=== PATIENT | male | born 1995 ===

== ENCOUNTER 2025-01-01 18:34 | Inpatient (IN) | payer OTHER, SELFPAY ==
--- NOTE | ~2025-01-01 | CT_ITS ---
CLINICAL HISTORY: RLQ pain ?appy CT abdomen and pelvis with contrast Comparison: None provided Findings: No consolidation or effusion. Hepatomegaly. No urolithiasis. Diffuse small bowel mural thickening with mucosal hyperemia may reflect secondary enteritis. No bowel obstruction. Prominent mesenteric nodes, likely reactive. Scattered colonic diverticulosis without diverticulitis or colitis. Dilated appendix without appendicoliths and diffuse periappendiceal fluid stranding. No periappendiceal fluid collections or evidence of perforation. Bladder is decompressed with mural thickening, nonspecific. Small volume ascites in the pelvis. The bones are intact. IMPRESSION: 1. Non perforated appendicitis with small volume free pelvic fluid. 2. Secondary mildly diffuse enteritis. This document has been electronically signed by: Filiberto Landon MD on 01/02/2025 01:08:01
[2025-01-01 18:44] VITALS: BP 123/72; PULSE 85; RESP 12; TEMP 36.7; O2SAT 97; BMI 21.9
--- NOTE | 2025-01-01 18:45 | ED_ITS ---
HPI - General Adult General Chief complaint: Abdominal Pain Stated complaint: abd pain Time Seen by Provider: 01/01/25 23:35 Source: patient Mode of arrival: ambulatory Limitations: no limitations History of Present Illness ED Provider: HPI narrative: Patient no significant past medical history noticed suprapubic right lower abdominal pain since 23:00 yesterday pain continued to get worse already today increases on ambulation vomited once does not feel hungry no fever no chills no urinary symptoms no history of kidney stone Related Data Allergies Allergy/AdvReac Type Severity Reaction Status Date / Time No Known Allergies Allergy Verified 01/01/25 18:46 Review of Systems 2 Review of Systems: Yes all other systems are reviewed and are negative [facility] Social History Social History Alcohol intake: current Alcohol intake frequency: holidays/special occasions only Smoked in Last 30 Days: No Use of substances other than those prescribed or required for medical reasons: No Advance Directives: No Advance Directives Information Provided: No Do you have a plan to hurt others: No Plan Physical Exam ED Vital Signs: Vital Signs - 24 hr 01/01/25 18:44 01/01/25 22:44 01/02/25 00:13 Temperature 98.1 F 97.9 F 98.8 F Pulse Rate 85 77 78 Respiratory Rate 12 18 17 Blood Pressure 123/72 104/64 107/70 Pulse Oximetry 97 98 100 Oxygen Delivery Method Room Air Room Air Room Air BMI result Body Mass Index 21.9 Appearance: Alert. Oriented X3. No acute distress. Eyes: NO PALLOR OR ICTERUS ENT: Pharynx normal. Oral Mucosa moist Neck: Normal inspection. Neck supple. CVS: Normal heart rate and rhythm. Pulses normal. Respiratory: No respiratory distress. Equal air entry bilateral, no wheezing/rales/rhonchi Abdomen: Soft and deep tenderness right lower quadrant with guarding no rebound tenderness Bowel sounds are present, no mass palpable, no CVA tenderness Skin: Skin warm and dry. Normal skin color. Normal skin turgor. Extremities: No lower extremity edema. No calf tenderness Neuro: Oriented X 3. No motor deficit. Course Course Course Narrative: This is a rapid medical exam performed by Karolina Núñez NP: Additional HPI, ROS, PE not included below will be deferred to primary provider. Patient is a 29-year-old male presenting with complaint of lower abd pain since 11pm last night. Vomited this afternoon and felt warm. Denies diarrhea. Denies urinary sxs. Plan: labs, UA Medications Administered Generic Name Dose Route Start Last Admin Trade Name Freq PRN Reason Stop Dose Admin Piperacillin Sod/Tazobactam 50 mls @ 100 mls/hr 01/02/25 01:15 01/02/25 01:28 Sod 3.375 gm/ Sodium Chloride IV 01/02/25 01:44 100 mls/hr ONCE ONE Administration Lactated Ringer's 1,000 mls @ 100 mls/hr 01/02/25 01:30 01/02/25 01:28 Lr IVCONT 100 mls/hr .Q10H RINA Administration Discontinued Medications Generic Name Dose Route Start Last Admin Trade Name Freq PRN Reason Stop Dose Admin Sodium Chloride 1,000 mls @ 999 mls/hr 01/01/25 23:45 01/02/25 01:20 Ns IV 01/02/25 00:45 Infused .Q1H1M ONE Infusion Iohexol 85 ml 01/02/25 00:13 01/02/25 00:14 Iohexol 350 Mg/Ml 100 Ml Infus..Btl IV 01/02/25 00:14 85 ml ONCE ONE Administration Ondansetron HCl 4 mg 01/01/25 23:45 01/02/25 00:12 Ondansetron Hcl 4 Mg/2 Ml Vial IVPUSH 01/01/25 23:46 4 mg ONCE ONE Administration Medical Decision Making Medical Decision Making [facility] Narrative: Patient with right lower quadrant pain with normal CBC count very tender on ambulation possible he has a appendicitis/appendagitis patient -CT scan showed enlarged appendix without any perforation case discussed with Dr. Melendez surgeon will admit patient for surgery in a.m. will give IV fluids and IV Zosyn Differential Diagnosis Differential Diagnoses: The differential diagnosis associated with the presentation includes Appendicitis/appendagitis/UTI/renal colic/constipation Consult Healthcare Provider Management of the patient was discussed with: Community Case Manager Dr. Melendez Lab Data [facility] Lab Attestation statement: I reviewed the patient's lab results. 01/01/25 19:26 01/01/25 19:26 Labs: Lab Results 08/13/25 08/13/25 08/14/25 Range/Units 19:26 22:56 00:17 WBC 10.3 (4.8-10.8) X10*3/uL RBC 4.85 (4.60-5.80) X10*6/uL Hgb 13.9 L (14.0-18.0) g/dl Hct 41.3 L (42.0-52.0) % MCV 85.2 (80.0-98.0) fL MCH 28.7 (27.0-33.0) pg MCHC 33.7 (31.0-36.0) g/dl RDW 12.0 (11.0-16.0) % Plt Count 262 (160-400) X10*3/uL MPV 9.7 (9.4-12.4) fL Immature Gran % (Auto) 0.8 H (0.0-0.4) % Neut % (Auto) 71.4 (45-73) % Lymph % (Auto) 17.9 L (20-40) % [place] % (Auto) 9.4 (2-11) % Eos % (Auto) 0.3 (0-4) % Baso % (Auto) 0.2 (0-2) % Lymph # (Auto) 1.8 (1.2-4.9) X10*3/uL [place] # (Auto) 1.0 (0.1-1.2) X10*3/uL Eos # (Auto) 0.0 (0.0-0.4) X10*3/uL Baso # (Auto) 0.0 (0.0-0.2) X10*3/uL Abs Immat Gran (auto) 0.08 H (0.00-0.03) X10*3/uL Absolute Neuts (auto) 7.3 (2.0-8.3) x10*3/uL Absolute Nucleated RBC 0.000 (0.0-0.012) X10*3/uL Nucleated RBC % (auto) 0.0 (0.0-0.2) /100WBC Sodium 142 (135-145) mmol/L Potassium 3.9 (3.3-5.1) mmol/L Chloride 106 (96-108) mmol/L Carbon Dioxide 28 (22-29) mmol/L Anion Gap 12 (12-20) BUN 7 L (9-16) mg/dL Creatinine 0.88 (0.5-1.4) mg/dL Estim Creat Clear Calc 125.8 Estimated GFR > 60 Random Glucose 85 (60-115) mg/dL Lactic Acid 0.7 (0.5-2.0) mmol/L Calcium 8.8 (8.4-10.2) mg/dL Total Bilirubin 0.6 (0.0-1.0) mg/dL AST 22 (5-37) U/L ALT 17 (0-40) U/L Alkaline Phosphatase 61 (39-117) U/L Total Protein 7.3 (6.5-8.0) g/dL Albumin 4.8 (3.5-5.0) g/dL Urine Color Yellow Urine Appearance Clear Urine pH 6.0 (5.0-9.0) Ur Specific [place] 1.015 (1.005-1.025) Urine Protein Negative (Neg-Trace) mg/dL Urine Glucose (UA) Negative (Negative) mg/dL Urine Ketones Negative (Negative) mg/dL Urine Blood Negative (Negative) Urine Nitrite Negative (Negative) Ur Leukocyte Esterase Negative (Negative) Independent Interpretation I performed an independent interpretation of an: CT Scan Radiology Impression Discussion of test interpretation with radiology: I have reviewed the radiologist's reading. Radiologist Impression: IMPRESSION: 1. Non perforated appendicitis with small volume free pelvic fluid. 2. Secondary mildly diffuse enteritis. Discharge Plan Discharge Clinical Impression: Acute appendicitis Patient Disposition: Admitted As Inpatient
--- OUTSIDE RECORDS SUMMARY | 2025-01-01 19:23 | XMS_ITS | Clinical Summary ---
Author Organization [address] [facility] Address [address] [place] [address] Phone Care Team Providers Care Continuous Churn Buttermaker Name Role Phone Yves Rae MD Primary Care Provider [phone] Allergies No known active allergies Medications mesalamine (CANASA) 1,000 mg suppositoryIndi cations:Ulcerat odell proctitis with rectal bleeding (CMS/HCC V24, CMS/HCC V28) Insert 1 suppository (1,000 mg total) into the rectum at bedtime. 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, CMS/HCC V28) (Primary Dx) from Last 3 Months Surgical History Surgery Date Site/Laterality Comments COLONOSCOPY 05/22/2023 - 05/21/2024 Medical History Medical History Date Comments Proctitis 2023 Family History Medical History Relation Name Comments No Known Problems Father No Known Problems Mother Relation Name Status Comments Father Alive Mother Alive Social History Tobacco Use Types Packs/Day Years Used Date Smoking Tobacco: Never Smokeless Tobacco: Never Tobacco Cessation:Counseling Given: Not Answered Alcohol Use Standard Drinks/Week Comments Not Currently 0 (1 standard drink = 0.6 oz pur e alcohol) Sex and Gender Information Value Date Recorded Sex Assigned at Not on file Legal Sex Male 2:26 AM EST Gender Identity Not on file Sexual Orientation Not on file Obstetrics History Last Filed Vital Signs Vital Sign Reading Time Taken Comments Blood Pressure 110/62 11/08/2024 2:34 PM EDT Pulse 68 11/08/2024 2:34 PM EDT Temperature - - Respiratory Rate - - Oxygen Saturation - - Inhaled Oxygen Concentration - - Weight 71.3 kg (157 lb 3.2 oz) 11/08/2024 2:34 P M EDT Height 180.3 cm (5' 11 ) 11/08/2024 2:34 PM EDT Body Mass Index 21.92 11/08/2024 2:34 PM EDT Plan of Treatment Health Maintenance Due Date Last Done Comments DTaP,Tdap,and Td Vaccines (1 - Tdap) 2015 Hepatitis B Vaccines (1 of 3 - 19+ 3-dose series) 2015 COVID-19 Vaccine (2023-2 5 season) 2024 HIV Screening 02/27/2024 Hepatitis C Screening 02/27/2024 Social Influencers of Health Screening 02/27/2024 Depression Screening 05/22/2024 Influenza Vaccine (#1) 2025 HIB Vaccines Aged Out No longer eligi ble based on patient's age to complete this topic HPV Vaccines Aged Out No longer eligi ble based on patient's age to complete this topic Hepatitis A Vaccines Aged Out No long er eligible based on patient's age to complete this topic IPV Vaccines Aged Out No longer eligi ble based on patient's age to complete this topic MMR Vaccines Aged Out No longer eligi ble based on patient's age to complete this topic Meningococcal ACWY Vaccine Aged Out N o longer eligible based on patient's age to complete this topic Meningococcal B Vaccine Aged Out No l onger eligible based on patient's age to complete this topic Pneumococcal Vaccine: Pediat rics (0 to 5 Years) and At-Risk Patients (6 to 49 Years) Aged Out No longer eligible b ased on patient's age to complete this topic RSV Immunization Patients Un chema 20 months Aged Out No longer eligible b ased on patient's age to complete this topic Varicella Vaccines Aged Out No longer eligible based on patient's age to complete this topic Insurance [facility] Care Teams Continuous Churn Buttermaker Relationship Specialty Start Date End Date Yves Rae MD [address] [place] [address] PCP - General 09/21/23
[2025-01-01 19:30] LABS: MANUAL DIFF FLAG NO
[2025-01-01 19:49] LABS: Alanine Aminotransferase 17 U/L (0-40); Albumin Level 4.8 g/dL (3.5-5.0); Alkaline Phosphatase 61 U/L (39-117); Anion Gap 12 (12-20); Aspartate Amino Transferase 22 U/L (5-37); Blood Urea Nitrogen 7 mg/dL (9-16); Calcium 8.8 mg/dL (8.4-10.2); Carbon Dioxide 28 mmol/L (22-29); Chloride 106 mmol/L (96-108); Creatinine Clr Calc Pharmacy 125.8; Estimated Glomerular Filt Rate > 60; Potassium 3.9 mmol/L (3.3-5.1); Sodium 142 mmol/L (135-145); Total Protein 7.3 g/dL (6.5-8.0)
[2025-01-01 20:00] LABS: Hematocrit 41.3 % (42.0-52.0); Hemoglobin 13.9 g/dl (14.0-18.0); Imm Gran Abs Auto 0.08 X10*3/uL (0.00-0.03); Imm Gran Pct Auto 0.8 % (0.0-0.4); Lymphocytes Absolute Auto 1.8 X10*3/uL (1.2-4.9); Mean Corpuscular HGB Conc 33.7 g/dl (31.0-36.0); Mean Corpuscular Hemoglobin 28.7 pg (27.0-33.0); Mean Corpuscular Volume 85.2 fL (80.0-98.0); NRBC Abs Auto 0.000 X10*3/uL (0.0-0.012); NRBC Pct Auto 0.0 /100WBC (0.0-0.2); Platelet Count 262 X10*3/uL (160-400); Red Blood Count 4.85 X10*6/uL (4.60-5.80); White Blood Count 10.3 X10*3/uL (4.8-10.8)
[2025-01-01 22:44] VITALS: BP 104/64; PULSE 77; RESP 18; TEMP 36.6; O2SAT 98
[2025-01-01 23:01] LABS: Appearance Urine Clear; Glucose Urine UA Negative (Negative); PH 6.0 (5.0-9.0); Specific Gravity - Urine 1.015 (1.005-1.025)
[2025-01-02] VITALS (15 sets, daily range): BP systolic 90–107; BP diastolic 52–70; PULSE 60–80; RESP 12–22; TEMP 36.1–37.1; O2SAT 96–100; BMI 21.6; BMI 23.2
[2025-01-02] MEDS: iohexoL 350 MG/ML 100 ML INFUS..BTL 85 ML IV (00:14)
--- NOTE | 2025-01-02 00:15 | PC.NURSE ---
20gIV placed in the right AC - IVF/medication administered per provider order. effectiveness pending. pt waiting for CT results at this time. pt remains in no apparent distress. on RA w/o difficulty. no sob/wob noted. respirations even/unlabored. significant other remains bedside for support. plan of care ongoing. call barkley placed within reach.
[2025-01-02] MEDS: Lactated Ringers 1,000 ML 100 ML IVCONT ×2 (01:28→12:00)
--- NOTE | 2025-01-02 01:36 | PC.NURSE ---
CT results display +appendicitis. pt notified/aware of results. pt aware of plan in regards to being admitted/remaining NPO x general surgery consultation. pt reports he has been NPO x 1999 on 01/01. abx infusing per provider order. no cultures needed prior to medicatin administration per MD. LR infusing @ 100mls/hr. pt also reports increase in abd pain - requesting medication. medication not verified by pharmacy at this time - will administer medication when able. plan of care ongoing.
--- NOTE | 2025-01-02 07:20 | PC.NURSE ---
Care of Pt assumed at change of shift. Pt is resting quietly at this time. A&Ox3, VSS Pt is NPO status at this time. Pt has inpatient room assignment--report entered by overnight RN. Awaiting transport.
--- NOTE | 2025-01-02 07:25 | PM.HPGS ---
History of Present Illness History of Present Illness Date of Service: 01/09/25 Chief complaint: Appendicitis Narrative: Prudencio Loza is a 29 year old male who came in the ER last night because of lower abdominal pain. He says that this started Monday evening at around 23:00 which was about 36 hours ago. He said that this persisted during the day yesterday. He says he is more tender on the right lower quadrant He denies any fever. He denies any any nausea or vomiting. He denies any diarrhea. He says he is healthy overall and does not take any medications. Review of Systems Constitutional: Constitutional: Denies chills and Denies fever(s) Cardiovascular: Cardiovascular: Denies chest pain, Denies dyspnea and Denies dyspnea on exertion Respiratory: Respiratory: Denies cough, Denies dyspnea and Denies dyspnea on exertion Gastrointestinal: Gastrointestinal: Denies hematochezia and Denies change in bowel habits Genitourinary: Genitourinary: Denies hematuria and Denies difficulty urinating Musculoskeletal: Musculoskeletal: Denies back pain and Denies limited range of motion Neurologic: Denies focal weakness and Denies convulsions Psychiatric: Psychiatric: Denies depression and Denies mood swings PMFSH Social History Social History Household Members: Children Housing: House Do you presently have visiting nurse or other home services: No Alcohol intake: current Alcohol intake frequency: holidays/special occasions only Patient Tobacco Use Status: Never used Tobacco Second Hand Smoke Exposure: No service: No Meds Allergies Allergy/AdvReac Type Severity Reaction Status Date / Time No Known Allergies Allergy Verified 01/01/25 18:46 Active Medications: Current Medications Acetaminophen (Acetaminophen 325 Mg Tablet) 650 mg PO Q6H PRN PRN Reason: Pain, Mild 1-3,fever,headache Lactated Ringer's (Lr) 1,000 mls @ 100 mls/hr IVCONT .Q10H RINA Last Admin: 01/02/25 01:28 Dose: 100 mls/hr Melatonin (Melatonin 3 Mg Tablet) 6 mg PO BEDTIME PRN PRN Reason: Insomnia Morphine Sulfate (Morphine Sulfate 2 Mg/Ml Cartridge) 2 mg IVPUSH Q4H PRN; Protocol PRN Reason: Pain, Severe (Pain Scale 7-10) Last Admin: 01/02/25 02:16 Dose: 2 mg Sodium Chloride (0.9 % Sodium Chloride Flush 3 Ml Syringe) 3 ml IVFLUSH QSHIFT RINA Last Admin: 01/02/25 07:04 Dose: Not Given Physical Exam Vital Signs: Vital Signs: Last Vital Signs Temp 97.7 F 01/02/25 05:35 Pulse 67 01/02/25 07:20 Resp 16 01/02/25 07:20 BP 102/61 01/02/25 07:20 Pulse Ox 98 01/02/25 07:20 O2 Del Method Room Air 01/02/25 07:20 BMI result Body Mass Index 21.9 Const: General: comfortable and no acute distress Orientation/consciousness: patient oriented x3 Neck: Neck: Yes no lymphadenopathy Resp: Auscultation: clear to auscultation bilaterally Cardio: Rhythm: regular rhythm GI: Other: Tender on the suprapubic area in the right lower quadrant with no guarding or rebound Palpation (GI): Soft to palpation, Tenderness to palpation present (GI) and no guarding Neuro: General: patient oriented x3 Results Results Labs: Short CBC 01/01/25 Range/Units 19:26 WBC 10.3 (4.8-10.8) X10*3/uL Hgb 13.9 L (14.0-18.0) g/dl Hct 41.3 L (42.0-52.0) % Plt Count 262 (160-400) X10*3/uL BMP 01/01/25 19:26 Sodium 142 Potassium 3.9 Chloride 106 Carbon Dioxide 28 BUN 7 L Creatinine 0.88 Calcium 8.8 Liver Function 01/01/25 Range/Units 19:26 Total Bilirubin 0.6 (0.0-1.0) mg/dL AST 22 (5-37) U/L ALT 17 (0-40) U/L Alkaline Phosphatase 61 (39-117) U/L Albumin 4.8 (3.5-5.0) g/dL Urine 01/01/25 Range/Units 22:56 Urine Color Yellow Urine Appearance Clear Urine pH 6.0 (5.0-9.0) Ur Specific [place] 1.015 (1.005-1.025) Urine Protein Negative (Neg-Trace) mg/dL Urine Glucose (UA) Negative (Negative) mg/dL Abdomen CT scan report/results: report reviewed and image reviewed CT scan - pelvis: report reviewed and image reviewed Additional studies: Dilated appendix without appendicoliths and diffuse periappendiceal fluid stranding. No periappendiceal fluid collections or evidence of perforation. Bladder is decompressed with mural thickening, nonspecific. Small volume ascites in the pelvis. The bones are intact. IMPRESSION: 1. Non perforated appendicitis with small volume free pelvic fluid. 2. Secondary mildly diffuse enteritis. Assessment and Plan (1) Acute appendicitis: Status: Acute He has lower abdominal pain mostly in the right lower quadrant. His CAT scan is consistent with acute appendicitis with edema of the appendix He wants to proceed with appendectomy. I reviewed the technique of laparoscopic appendectomy and possible open appendectomy. I explained the risks including but not limited to bleeding, infections, bowel injury, inherent risks of anesthesia, staple line leak, as well as the benefits and alternatives He understands and wants to proceed He understands also the option of surgical treatment with antibiotics alone. Quality Stroke Does the patient have a stroke diagnosis?: No VTE Prior VTE?: No VTE Risk Level:: Medical - low VTE Device Contraindication: N/A - Device Ordered VTE Drug Contraindication: Treatment Not Indicated Procedures Date of Service Date of Service: 01/09/25
--- NOTE | 2025-01-02 07:51 | PC.NURSE ---
Spoke with Thalia in Short Stay Surgery. Pt is slotted for appendectomy for approx. 12p today. RN to RN report completed at this time. Thalia advised that Pt will be proceeding to inpatient room assignment in the very near future (room 375.) Inpatient RN made aware of Pts scheduled surgery via [employer].
--- NOTE | 2025-01-02 08:36 | PHA.MEDREC ---
Addendum entered by Adria Allen PharmD 01/02/25 08:38: reviewed Original Note: Pharmacy Consult ? Medication Reconciliation Pharmacy has completed the medication reconciliation. Patient states he is not on any medications.
--- NOTE | 2025-01-02 09:19 | HO.ANESPROP2 ---
[facility] Active Problems Active Problems: All Active Problems (Updated 01/02/25 @ 01:15 by Braeden Richardson MD) Acute appendicitis (Acute) Past Medical History Functional capacity: independent ambulation Family History Family history of problems with anesthesia: Yes Surgical History History of Problems with Anesthesia: No Social History Social History Household Members: Children Housing: House Do you presently have visiting nurse or other home services: No Alcohol intake: current Alcohol intake frequency: holidays/special occasions only Patient Tobacco Use Status: Never used Tobacco Smoked in Last 30 Days: No Patient Interested in Nicotine Replacement: No Patient Given Instructions on How to Stop Smoking: No Second Hand Smoke Exposure: No Use of substances other than those prescribed or required for medical reasons: No Have you been hit, kicked, punched, or otherwise hurt by someone within the past year? If so, by whom?: No Do you feel safe in your current relationship?: Yes Is there a partner from a previous relationship who is making you feel unsafe now?: No Are you made to feel afraid or neglected: No Advance Directives: No Advance Directives Information Provided: No Do you have a plan to hurt others: No Plan Recently lost weight without trying: No Eating poorly because of decreased appetite: No Nutrition Risks: No Nutritional Risk Poor oral hygiene: No Meds Allergies Allergy/AdvReac Type Severity Reaction Status Date / Time No Known Allergies Allergy Verified 01/01/25 18:46 Active Medications: Current Medications Acetaminophen (Acetaminophen 325 Mg Tablet) 650 mg PO Q6H PRN PRN Reason: Pain, Mild 1-3,fever,headache Lactated Ringer's (Lr) 1,000 mls @ 100 mls/hr IVCONT .Q10H [facility] Last Admin: 01/02/25 01:28 Dose: 100 mls/hr Melatonin (Melatonin 3 Mg Tablet) 6 mg PO BEDTIME PRN PRN Reason: Insomnia Morphine Sulfate (Morphine Sulfate 2 Mg/Ml Cartridge) 2 mg IVPUSH Q4H PRN; Protocol PRN Reason: Pain, Severe (Pain Scale 7-10) Last Admin: 01/02/25 02:16 Dose: 2 mg Sodium Chloride (0.9 % Sodium Chloride Flush 3 Ml Syringe) 3 ml IVFLUSH QSHIFT [facility] Last Admin: 01/02/25 07:04 Dose: Not Given Home Medications ?Medication ?Instructions ?Recorded ?Confirmed ?Last Taken ?Type No Known Home Meds 01/02/25 01/02/25 Unknown History Exam Exam Date and Time: 8 Height,Weight and Vital Signs: Height 5 ft 11 in Weight 75.6 kg Last Vital Signs Temp 97.9 F 01/02/25 08:54 Pulse 63 01/02/25 08:54 Resp 16 01/02/25 08:54 BP 91/63 01/02/25 08:54 Pulse Ox 98 01/02/25 08:54 O2 Del Method Room Air 01/02/25 08:54 Pertinent Lab Results Pertinent Lab Results: Laboratory Tests 01/01/25 01/01/25 01/02/25 19:26 22:56 00:17 WBC 10.3 RBC 4.85 Hgb 13.9 L Hct 41.3 L MCV 85.2 MCH 28.7 MCHC 33.7 RDW 12.0 Plt Count 262 MPV 9.7 Immature Gran % (Auto) 0.8 H Neut % (Auto) 71.4 Lymph % (Auto) 17.9 L [place] % (Auto) 9.4 Eos % (Auto) 0.3 Baso % (Auto) 0.2 Lymph # (Auto) 1.8 [place] # (Auto) 1.0 Eos # (Auto) 0.0 Baso # (Auto) 0.0 Abs Immat Gran (auto) 0.08 H Absolute Neuts (auto) 7.3 Absolute Nucleated RBC 0.000 Nucleated RBC % (auto) 0.0 Sodium 142 Potassium 3.9 Chloride 106 Carbon Dioxide 28 Anion Gap 12 BUN 7 L Creatinine 0.88 Estim Creat Clear Calc 125.8 Estimated GFR > 60 Random Glucose 85 Lactic Acid 0.7 Calcium 8.8 Total Bilirubin 0.6 AST 22 ALT 17 Alkaline Phosphatase 61 Total Protein 7.3 Albumin 4.8 Urine Color Yellow Urine Appearance Clear Urine pH 6.0 Ur Specific [place] 1.015 Urine Protein Negative Urine Glucose (UA) Negative Urine Ketones Negative Urine Blood Negative Urine Nitrite Negative Ur Leukocyte Esterase Negative Airway Loose/Missing/Broken Teeth: No (rrr) Lungs: cta Assessment and Plan Final Anesthetic Review Family History of Problems with Anesthesia: Yes History of Problems with Anesthesia: No NPO: Yes ASA Class: I and Emergency Final Preanesthetic Review: No Changes in Pt Med Stat, Meds/Allgs Chart Reviewed, Consent Obtained/Reviewed and Anes Risks/Benef Reviewed Patient Risk: Low Procedure Risk: Low Anesthetic Plan Anesthetic Plan: GA Disposition: Standard PACU
--- NOTE | 2025-01-02 09:29 | MHC.CM.PN ---
Pt not present in room, he is in the OR for an appendectomy. Pts girlfriend present in room, she states he lives alone in his own home, is self-care, and she will transport him home at discharge. PCP: Dr. Yves Rae
[2025-01-02] MEDS: cefoTEtan disodium 2 GM VIAL IVPUSH (09:50)
--- NOTE | 2025-01-02 10:39 | P.OP_ITS ---
Operative Note Operative Note Date of Service: 01/02/25 Narrative: Preop Diagnosis: Acute appendicitis Postop diagnosis acute appendicitis Procedure: Laparoscopic appendectomy Surgeon: Yuri Melendez MD special events assistant: CARON Galdamez The patient is a 29-year-old male with right lower quadrant pain, with a CAT scan showing a distended inflamed appendix consistent with acute appendicitis. He wanted to proceed with laparoscopic appendectomy. He understood the technique of the planned procedure as was the risks, benefits, and alternatives He was brought to the operating room. He was placed supine under general anesthesia via endotracheal tube. The abdomen was prepped and draped in usual sterile fashion. A Lynn cathete. had been inserted. A surgical time-out was done. The patient received Cefotan 2 g IV preoperatively I made a short infraumbilical incision with a blade 15. This was carried down through the full-thickness of the skin and subcutaneous fat down to the fascia. The fascia was incised. The peritoneum was entered. Through this incision a Arndt ssan port was introduced. Pneumoperitoneum was introduced to a pressure of 15 mm Hg. From here on the rest of procedure was done under vision with the laparoscope. We started with the 10 mm 30 degree scope. With laparoscopic visualization I inserted a 5 mm port in the left lower quadrant through a small stab incision. A 5 mm port was also introduced a small incision in the suprapubic margin. The patient is placed in a head-down position. Graspers were placed through the working ports. The appendix was seen and this was markedly indurated, mostly on the distal 2/3. There was note of an adherent omentum at the tip. We carefully lysed this with LigaSure. I applied the grasper at the distal half of the appendix to put this on stretch. By doing so was able to visualize the base of the appendix. I used the [place] dissector to create a mesenteric window. I then positioned the Endo-BIN 30 mm stapler across the base and this was fired to transect the appendix. This had to be fired twice because of the wide base I then proceeded to retract the appendix to expose the entire mesoappendix. I serially ligated the mesoappendix using the LigaSure until was able to completely separate the appendix Again the appendix was markedly indurated and inflamed and mostly in the distal 2/3 The appendix was retrieved through an endobag through the umbilical incision. We had switched to a 5 mm port at this point I reinserted the ports. I examined the area of dissection. There was note of good hemostasis. The staple line was intact I observed all 4 quadrants. There was never had any was then bowel injury or any other pathology I then positioned the thumb down to the right lower quadrant Once hemostasis was reconfirmed, I desufflated the port sites. All ports corey leticia under vision with the laparoscope. The umbilical port was removed last. The fascia of the umbilical incision was closed with a [id number] Polysorb 0 stitch Skin closure was achieved on all incisions using Polysorb 4-0 subcuticular running sutures. All incisions were infiltrated with Marcaine 0.5% for postop analgesia Dressings were applied. The procedure was completed. The patient tolerated procedure well. There were no immediate complications. Initial and final counts of sponges and instruments were correct. Estimated blood loss was less than 20 cc. The patient is extubated without difficulty and transferred to the recovery room with stable vital signs.
--- NOTE | 2025-01-02 15:10 | PM.EVENT ---
Event Note Date of Service: 01/02/25 Event Note: He was seen postop He tolerated regular diet He has good pain control He has been ambulating He looks well clinically Abdomen is soft He says he is ready to be discharged Discharge instructions reinforced with the patient We will see in the office for follow up Family at bedside Time Spent With Patient Time: Total time managing care of this patient today ____ minutes.
[2025-01-02] MEDS: oxyCODONE HCl Immed Release 5 MG TABLET PO (15:29)
--- NOTE | 2025-01-03 15:06 | PM.DS ---
DS: Providers Provider Date of Service: 01/02/25 Date of admission: 01/02/25 01:20 Date of discharge: 01/02/25 Primary care physician: Yves Rae MD Admitting clinician: Yuri Melendez Attending physician on admission: Yuri Melendez Attending physician on discharge: Yuri Melendez DS: Diagnosis Discharge Diagnosis (1) Acute appendicitis: Status: Acute DS: Summary Hospital Course Hospital Course: Admission HPI: Prudencio Loza is a 29 year old male who came in the ER last night because of lower abdominal pain. He says that this started Monday evening at around 23:00 which was about 36 hours ago. He said that this persisted during the day yesterday. He says he is more tender on the right lower quadrant. He denies any fever. He denies any any nausea or vomiting. He denies any diarrhea. He says he is healthy overall and does not take any medications. Plan to proceed Hospital course: Patient had laparoscopic appendectomy later that day. Which he tolerated well and was transferred to the PACU. He was transferred to the [facility] floor. Diet was advanced and his pain was well controlled. That evening, he felt stable, ready to be discharged. At the time of discharge the patient's vital signs were stable, his abdomen was soft, tender around incision sites but otherwise benign. Status at Discharge Functional status at discharge: independent ambulation Overall status at discharge: patient is progressing back to baseline Time Attestation Discharge Coordination Time (in mins): 30 Quality: Safe Use of Opioids Does Pt have an Active Cancer Diagnosis on the Problem List?: No Quality: Stroke Does the patient have a stroke diagnosis?: No Physical Exam Vital Signs: Vital Signs: Last Vital Signs Temp 97.7 F 01/02/25 15:25 Pulse 64 01/02/25 15:25 Resp 18 01/02/25 15:25 BP 103/62 01/02/25 15:25 Pulse Ox 97 01/02/25 15:25 O2 Del Method Room Air 01/02/25 15:25 O2 Flow Rate 10 01/02/25 11:00 BMI result Body Mass Index 23.2 Const: General: comfortable and no acute distress Orientation/consciousness: patient oriented x3 Neck: Neck: Yes no lymphadenopathy Resp: Auscultation: clear to auscultation bilaterally Cardio: Rhythm: regular rhythm GI: Other: Tender on the suprapubic area in the right lower quadrant with no guarding or rebound Palpation (GI): Soft to palpation, Tenderness to palpation present (GI) and no guarding Neuro: General: patient oriented x3 DS: Data Data Completed and Pending Pending studies at discharge: Pending at discharge 01/02/25 10:22 Surgical [PTH] Routine Discharge Plan Discharge Anticipated Discharge Date/Time: 01/02/25 16:00 Patient Disposition: Home, Self-Care Discharge Diagnosis: acute appendicitis Referrals: Yuri Melendez MD [Physician, General Surgery] - 2 Weeks Yves Rae MD [Primary Care Provider, Internal Medicine] - 1 Week Discharge Medications: New oxycodone-acetaminophen 5-325 mg tablet 1 tab PO Q6H PRN (Reason: pain) Qty: 20 0RF Rx Instructions: Partial Fill upon patient request. ibuprofen 600 mg tablet 600 mg PO Q6H PRN (Reason: pain) Qty: 30 0RF Discharge Orders: Discharge Order (Routine); Ordered 01/02/25 Ordered By: Yuri Melendez Diet: Advance to usual diet Activity on Discharge: No heavy lifting Stand Alone Forms: Patient Portal Discharge page Print Language: Macedonian Activity Restrictions/Additional Instructions: If the incision area is tender, you may apply an ice pack for short intervals (No more than 20 minutes on, followed by at least 20 minutes off). Do not apply heat. Do not use creams, lotions, or topical antibiotics unless instructed to do so by your surgeon. These can cause infection or allergic reaction. No lifting more than 20 lbs Okay to shower starting January 04 Okay to change dressings with Band-Aids starting January 04 No strenuous activities Call the office for follow-up in 2 weeks - with Dr. Melendez Call Your Doctor If: -Your temperature exceeds 101.5? F -You experience excessive pain or swelling -You have an unexpected reaction to medication -You have excessive bleeding -You experience continued vomiting/nausea -Your incision begins to separate -Your incision shows signs of infection such as increased redness, swelling, excessive pain, drainage (light blood or clear fluid is normal) or heat Care Plan Goals: Returned to baseline Health Concerns: Pain management Plan of Treatment: Oral pain meds Follow up in the office Assessment: Doing very well Discharge Date/Time: 01/02/25 15:53
== END 2025-01-02 15:53 | disposition home or self-care (01) | DRG 399 ==
LOC: HO.ED 01-02 01:15 → HO.EDOVER 01-02 01:32 → HO.S3 01-02 07:15
PROVIDERS: Registered Nurse Emergency; Admitting Provider Surgery; Emergency Provider Internal Medicine; PCP Internal Medicine; Visit Provider Surgery
PROC: 0DTJ4ZZ Resection of Appendix, Percutaneous Endoscopic Approach (ICD-10-PCS; CPT 44970; principal; 2025-01-02 11:00)
DX: K35.80 Unspecified acute appendicitis (principal)
CPT/HCPCS: 44970; 36415; 74177; 80053; 81003; 83605; 85025; 88304; 99221; 99285; J0131; J1100; J1596; J1885; J2003; J2250; J2270; J2405; J2543; J2704; J2795; J3010; J7120; Q9967

== ENCOUNTER → 2025-01-02 01:20 | Outpatient (BNV) | payer OTHER, SELFPAY | PROVIDERS: Admitting Provider Surgery; Emergency Provider Internal Medicine; PCP Internal Medicine; Visit Provider Surgery | DX: K35.80 Unspecified acute appendicitis (principal) | CPT/HCPCS: 99499 ==

== ENCOUNTER → 2025-01-02 | Outpatient (BNV) | payer OTHER, SELFPAY | PROVIDERS: Admitting Provider Surgery; Emergency Provider Internal Medicine; PCP Internal Medicine; Visit Provider Radiology Diagnostic Radiology | DX: K35.890 Other acute appendicitis without perforation or gangrene (principal) | CPT/HCPCS: 74177 ==

== ENCOUNTER 2025-01-14 13:42 | Outpatient (AMB) | payer OTHER, SELFPAY ==
--- NOTE | 2025-01-14 13:42 | MHC.OFFVIS ---
Vital Signs 01/14/25 13:45 Weight 158 lb 11.725 oz BP 122/68 Blood Pressure Location Rt brachial Position Sitting Pulse 72 Intake Visit Reasons: s/p appendectomy Intake Note: Patient here s/p Laparoscopic appendectomy. Patient c/o: reports incisions healing well. No longer taking rx pain meds. Surgery: 01-02-2025 Refresh Technician Required: No Accompanied by: Self / Same As Patient Allergies No Known Allergies Allergy (Verified 01/14/25 13:43) HPI HPI s/p appendectomy: Details: 29-year-old male here for follow-up after laparoscopic appendectomy last 01/02/2025 for acute appendicitis. He was actually discharged on the same day. He says he is doing well at home and denies significant complaints. He has good oral intake. [facility] Surgical History History of laparoscopic appendectomy (01/02/25) Social History Household Members: Children Housing: House Do you presently have visiting nurse or other home services: No Alcohol intake: current Alcohol intake frequency: holidays/special occasions only Patient Tobacco Use Status: Never used Tobacco Second Hand Smoke Exposure: No service: No Review of Systems Const Denies chills and Denies fever(s) Card Denies chest pain and Denies dyspnea Resp Denies cough and Denies dyspnea GI Denies abdominal pain and Denies vomiting Physical Exam Vital Signs: Last Vital Signs Pulse 72 01/14/25 13:45 BP 122/68 01/14/25 13:45 Const General: comfortable and no acute distress Resp Effort & Inspection: normal respiratory effort GI Other: All incisions are well healed, not infected Palpation (GI): Soft to palpation, not firm, nontender and no guarding Assessment & Plan Assessment & Plan (1) Acute appendicitis: Code(s): K35.80 - Unspecified acute appendicitis Category: Medical Plan: Status post laparoscopic appendectomy. He is doing very well postoperatively. All incisions are well healed. He has good GI functions. I advised him to avoid lifting anything more than 20 lb for at least 2 more weeks. He can otherwise follow up on a p.r.n. basis His path report shows acute appendicitis. Medications: Discontinued oxycodone-acetaminophen 5-325 mg Partial Fill upon patient request. Discontinued Reason: Patient no longer taking 1 tab PO Q6H PRN 20 tabs 0RF pain Coding Level of Care Code Global (64971) Diagnoses Acute appendicitis K35.80
[2025-01-14 13:45] VITALS: BP 122/68; PULSE 72
--- OUTSIDE RECORDS SUMMARY | 2025-01-14 14:40 | XMS_ITS | Clinical Summary ---
Author Organization [address] [facility] Address [address] [place] [address] Phone Care Team Providers Care Phlebotomist Supervisor/Instructor Name Role Phone Yves Rae MD Primary Care Provider [phone] Allergies No known active allergies Medications mesalamine (CANASA) 1,000 mg suppositoryIndi cations:Ulcerat odell proctitis with rectal bleeding (CMS/HCC V24, CMS/HCC V28) Insert 1 suppository (1,000 mg total) into the rectum at bedtime. 90 each 1 5 08/06/19 26 Active Encounters Date Type Department Care Team Description 11/08/2024 2:30 PM EDT Office Visit Gastroenterology [facility] [address] [place] [address] Jamshid Foster MD Ulcerative proctitis [...] patient's age to complete this topic Insurance [facility] Care Teams Phlebotomist Supervisor/Instructor Relationship Specialty Start Date End Date Yves Rae MD [address] [place] [address] PCP - General 09/21/23
== END 2025-01-14 13:55 | disposition home or self-care (01) ==
LOC: HO.HGS 13:42
PROVIDERS: PCP Internal Medicine; Visit Provider Surgery
DX: K35.80 Unspecified acute appendicitis (principal)
CPT/HCPCS: 99024